=== PATIENT | female | born 1955 | race African-American/Black ===

== ENCOUNTER 2017-11-28 15:30 | Inpatient (IN) | payer MEDICAID ==
[~2017-11-28] VITALS: Ht 162.6 cm; Wt 129.7 kg
[2017-11-28] MEDS ORDERED: METO25TA6 PO (15:41)
[2017-11-28] MEDS ORDERED: SODIUM CHLORIDE 0.9% 1,000 ML IV ONE (16:16)
[2017-11-28 17:09] LABS: BASOPHILS % 0.3 % (0.0-2.0); EOSINOPHILS % 1.4 % (0.0-5.0); HEMATOCRIT. 38.1 % (36.0-48.0); HEMOGLOBIN. 12.8 g/dL (12.0-16.0); LYMPHOCYTES % 13.9 % (20.0-50.0); MEAN CORPUSCULAR VOLUME 83.4 fL (81.0-99.0); MEAN PLATELET VOLUME 7.4 fl (7.4-10.4); MONOCYTES % 9.8 % (2.0-8.0); NEUTROPHILS % 74.6 % (40.0-76.0); PLATELET 297 x1000/uL (130-400); RED BLOOD CELL COUNT 4.56 mill/uL (4.2-5.4); RED CELL DISTRIBUTION WIDTH 14.8 % (11.6-14.6)
[2017-11-28 17:13] LABS: CHLORIDE 106 mEq/L (98-107)
[2017-11-28 17:14] LABS: PROTHROMBIN TIME 10.5 sec (9.1-11.1)
[2017-11-28] MEDS ORDERED: SODIUM CHLORIDE 0.9% 1000ML BAG (SEPSIS BOLUS) IV ONE (17:30)
[2017-11-28] MEDS ORDERED: ASPIRIN 325MG TABLET PO ONE (17:30)
[2017-11-28 19:39] LABS: CLARITY URINE CLOUDY (CLEAR); COLOR URINE YELLOW (YELLOW); KETONES URINE NEGATIVE (NEGATIVE); LEUKOCYTE ESTERASE URINE 1+ (NEGATIVE); NITRITE URINE NEGATIVE (NEGATIVE); OCCULT BLOOD URINE NEGATIVE (NEGATIVE); PROTEIN URINE 1+ (NEGATIVE); SPECIFIC GRAVITY URINE 1.022 (1.005-1.030)
[2017-11-28 20:30] VITALS: BP 156/73
[2017-11-28 20:35] VITALS: BP 156/73
[2017-11-29] VITALS: BP 126/66
[2017-11-29] MEDS: MORPHINE SULFATE 4 MG/ML CPJ (NOT FOR IM USE) IV PRN ×3 (00:13→17:25)
[2017-11-29 04:00] VITALS: BP 131/64
[2017-11-29] MEDS ORDERED: NITROGLYCERIN OINT 1GM/INCH UDPKT TD SCH (06:00)
[2017-11-29 07:09] LABS: BASOPHILS % 0.6 % (0.0-2.0); HEMATOCRIT. 33.4 % (36.0-48.0); HEMOGLOBIN. 11.1 g/dL (12.0-16.0); MEAN CORPUSCULAR HEMOGLOBIN 27.6 pg (28.0-32.0); MEAN CORPUSCULAR VOLUME 83.3 fL (81.0-99.0); MEAN PLATELET VOLUME 7.5 fl (7.4-10.4); MONOCYTES % 11.4 % (2.0-8.0); PLATELET 265 x1000/uL (130-400); RED BLOOD CELL COUNT 4.01 mill/uL (4.2-5.4); RED CELL DISTRIBUTION WIDTH 14.6 % (11.6-14.6)
[2017-11-29 07:38] LABS: CHLORIDE 108 mEq/L (98-107)
[2017-11-29 07:49] LABS: LDL CHOLESTEROL 89 mg/dL (5-100)
[2017-11-29 07:50] LABS: HDL CHOLESTEROL 37 mg/dL (40-59)
[2017-11-29 08:00] VITALS: BP 143/76
[2017-11-29] MEDS: ASPIRIN 325MG EC TABLET PO SCH (08:30)
[2017-11-29] MEDS: DOCUSATE SODIUM 250MG CAPSULE PO PRN (08:30)
[2017-11-29] MEDS ORDERED: METOPROLOL TARTRATE 50MG TABLET PO SCH ×2 (09:00→21:00)
[2017-11-29 11:55] VITALS: BP 158/75
[2017-11-29] MEDS: LEVOFLOXACIN 500MG TABLET PO SCH (14:14)
[2017-11-29 17:24] LABS: CREATINE KINASE MB FRACTION 1.8 ng/mL (0.5-3.6)
[2017-11-29 20:00] VITALS: BP 136/70
[2017-11-30] VITALS (7 sets, daily range): BP systolic 124–171; BP diastolic 65–81
[2017-11-30] MEDS: HYDROCODONE/ACETAMINOPHEN 5/325MG TABLET PO PRN ×2 (02:50→12:15)
[2017-11-30] MEDS: ASPIRIN 325MG EC TABLET PO SCH (08:32)
[2017-11-30] MEDS: DOCUSATE SODIUM 250MG CAPSULE PO PRN (08:33)
[2017-11-30] MEDS: LEVOFLOXACIN 500MG TABLET PO SCH (12:14)
[2017-11-30] MEDS ORDERED: METOPROLOL TARTRATE 100MG TABLET PO SCH (21:00)
== END 2017-11-30 18:00 | disposition home or self-care (01) | DRG 469 ==
LOC: ER 15:30 → EDBEDREQ 17:55 → 8WST 17:55 → EDBEDREQTM 17:55 → ENRESERV 19:52 → EDBEDREQ 20:26
PROVIDERS: ADMIT Internal Medicine; ATTEND Internal Medicine
DX: N17.0 Acute kidney failure with tubular necrosis (principal); I24.9 Acute ischemic heart disease, unspecified; E66.01 Morbid (severe) obesity due to excess calories; I47.1 Supraventricular tachycardia; Z68.42 Body mass index [BMI] 45.0-49.9, adult; N39.0 Urinary tract infection, site not specified; I10 Essential (primary) hypertension; M19.90 Unspecified osteoarthritis, unspecified site; R79.89 Other specified abnormal findings of blood chemistry; R73.03 Prediabetes; Z85.828 Personal history of other malignant neoplasm of skin; Z88.1 Allergy status to other antibiotic agents; Z88.2 Allergy status to sulfonamides; Z79.899 Other long term (current) drug therapy; Z87.891 Personal history of nicotine dependence
CPT/HCPCS: 36415; 71045; 73721; 80048; 80053; 80061; 81003; 82550; 82553; 83605; 83690; 83735; 83880; 84443; 84484; 85025; 85610; 87040; 87086; 93005; 93306; 96360; 96361; 97116; 97162; 99285; J2270; J7030

== ENCOUNTER 2022-06-26 12:49 | Inpatient (IN) | payer MEDICARE, MEDICAID ==
[~2022-06-26] VITALS: Ht 162.6 cm; Wt 115.3 kg
[~2022-06-26 12:49] MED LIST: IBUP-2030 PO; TRAM50TA3 PO
[2022-06-26] MEDS ORDERED: SODIUM CHLORIDE 0.9% 1,000 ML IV ONE (13:15)
[2022-06-26] MEDS ORDERED: ADENOSINE 3 MG/ML 2ML VIAL IV ONE ×2 (13:15)
[2022-06-26 14:49] LABS: CHLORIDE 112 mEq/L (98-107)
[2022-06-26 15:10] LABS: BASOPHILS % 0.2 % (0.0-2.0); EOSINOPHILS % 4.2 % (0.0-5.0); HEMOGLOBIN. 11.5 g/dL (12.0-16.0); LYMPHOCYTES % 23.4 % (20.0-50.0); MEAN CORPUSCULAR HEMOGLOBIN 28.6 pg (28.0-32.0); MEAN CORPUSCULAR VOLUME 86.8 fL (81.0-99.0); MEAN PLATELET VOLUME 7.5 fl (7.4-10.4); MONOCYTES % 13.2 % (2.0-8.0); PLATELET 292 x1000/uL (130-400); RED BLOOD CELL COUNT 4.03 mill/uL (4.2-5.4); RED CELL DISTRIBUTION WIDTH 14.8 % (11.6-14.6)
[2022-06-26 20:00] VITALS: BP 181/92
[2022-06-26] MEDS ORDERED: ZOLPIDEM TARTRATE 5MG TABLET PO PRN (22:45)
[2022-06-26] MEDS ORDERED: ACETAMINOPHEN 325MG TABLET PO PRN (22:45)
[2022-06-26] MEDS ORDERED: IOHEXOL-350 100 ML BOTTLE ONE (22:51)
[2022-06-26] MEDS ORDERED: INFLUENZA VACCINE 05/PF 0.5 ML SYRINGE IM ONE (23:45)
[2022-06-26] MEDS ORDERED: PNEUMOCOCCAL 23-VAL P-SAC VAC 0.5 ML IM ONE (23:45)
[2022-06-27] VITALS: BP_SYST 132; BP_SYST 155; BP_DIAS 73; BP_DIAS 75
[2022-06-27] MEDS: KETOROLAC 15MG/ML VIAL IV PRN ×2 (00:31→12:30)
[2022-06-27] MEDS: METOPROLOL TARTRATE 25MG TABLET PO SCH ×3 (00:31→12:26)
[2022-06-27 04:00] VITALS: BP 139/64
[2022-06-27 07:19] LABS: BASOPHILS % 0.6 % (0.0-2.0); EOSINOPHILS % 5.8 % (0.0-5.0); HEMATOCRIT. 34.1 % (36.0-48.0); HEMOGLOBIN. 11.6 g/dL (12.0-16.0); LYMPHOCYTES % 21.4 % (20.0-50.0); MEAN CORPUSCULAR HEMOGLOBIN 29.7 pg (28.0-32.0); MEAN CORPUSCULAR VOLUME 87.4 fL (81.0-99.0); MEAN PLATELET VOLUME 7.5 fl (7.4-10.4); MONOCYTES % 14.1 % (2.0-8.0); NEUTROPHILS % 58.1 % (40.0-76.0); PLATELET 262 x1000/uL (130-400); RED CELL DISTRIBUTION WIDTH 15.1 % (11.6-14.6)
[2022-06-27 07:20] LABS: CHLORIDE 109 mEq/L (98-107)
[2022-06-27 07:30] LABS: HDL CHOLESTEROL 48 mg/dL (40-59); LDL CHOLESTEROL 91 mg/dL (5-100)
[2022-06-27 08:00] VITALS: BP 146/71
[2022-06-27] MEDS ORDERED: HEPARIN 5000 UNITS/ML VIAL SUBCUT SCH (09:00)
[2022-06-27] MEDS ORDERED: PANTOPRAZOLE 40MG DR TABLET PO SCH (09:00)
[2022-06-27 10:07] LABS: HEPATITIS B SURFACE ANTIGEN NEGATIVE
[2022-06-27 12:00] VITALS: BP 156/63
[2022-06-27] MEDS ORDERED: ONDANSETRON HCL 4MG/2ML INJ IV NR (14:15)
[2022-06-27] MEDS ORDERED: ONDANSETRON HCL 4MG/2ML INJ IV PRN (14:45)
[2022-06-27 15:02] VITALS: BP 142/65
== END 2022-06-27 17:34 | disposition home or self-care (01) | DRG 310 ==
LOC: ER 12:55 → EDBEDREQ 18:16 → ER 19:00 → 7WST 20:52
PROVIDERS: ADMIT Internal Medicine; ATTEND Internal Medicine
DX: I47.1 Supraventricular tachycardia (principal); I10 Essential (primary) hypertension; Z85.828 Personal history of other malignant neoplasm of skin; Z88.0 Allergy status to penicillin; Z88.1 Allergy status to other antibiotic agents; Z88.2 Allergy status to sulfonamides; Z82.49 Family history of ischemic heart disease and other diseases of the circulatory system
CPT/HCPCS: 36415; 71045; 71275; 80048; 80053; 80061; 83880; 84484; 85025; 85379; 86803; 87340; 93005; 93306; 99291; J0153; J1644; J1885; J2405; J7030; Q9967

== ENCOUNTER 2022-12-28 13:16 | Emergency (ER) | payer MEDICARE, MEDICAID ==
[~2022-12-28] VITALS: Ht 165.1 cm; Wt 100.0 kg
[2022-12-28 13:53] VITALS: BP 177/89; RESP 18; TEMP 98.7; O2SAT 97
[2022-12-28 13:56] VITALS: PULSE 114
[2022-12-28] MEDS ORDERED: KETOROLAC 30MG/ML VIAL IM ONE (14:30)
[2022-12-28] MEDS ORDERED: ACETAMINOPHEN 325MG TABLET PO ONE (14:30)
[2022-12-28] MEDS ORDERED: LIDO700A15 TP (15:37)
== END 2022-12-28 16:01 | disposition home or self-care (01) ==
LOC: ER 13:16
DX: M19.90 Unspecified osteoarthritis, unspecified site (principal); I10 Essential (primary) hypertension; Z88.0 Allergy status to penicillin; Z88.1 Allergy status to other antibiotic agents; Z88.2 Allergy status to sulfonamides; Z98.890 Other specified postprocedural states
CPT/HCPCS: 99283; 73564; 96372; J1885

== ENCOUNTER 2024-01-09 13:17 | Emergency (ER) | payer MEDICARE, MEDICAID ==
[~2024-01-09] VITALS: Ht 162.6 cm; Wt 100.0 kg
[~2024-01-09 13:17] MED LIST changes: +LIDO700A15 TP
[2024-01-09 13:23] VITALS: BP 176/65; PULSE 77; RESP 18; O2SAT 99
[2024-01-09 15:26] VITALS: TEMP 98.1
[2024-01-09] MEDS: ACETAMINOPHEN 500MG TABLET PO ONE (15:26)
[2024-01-09] MEDS ORDERED: ACET-2708 MT (16:31)
== END 2024-01-09 17:44 | disposition home or self-care (01) ==
LOC: ER 13:17
DX: M25.512 Pain in left shoulder (principal); I10 Essential (primary) hypertension; R51.9 Headache, unspecified; Z88.2 Allergy status to sulfonamides; Z88.1 Allergy status to other antibiotic agents; Z88.0 Allergy status to penicillin; Z79.899 Other long term (current) drug therapy; Z85.9 Personal history of malignant neoplasm, unspecified
CPT/HCPCS: 99284